=== PATIENT | female | born 1965 | race Caucasian/White ===

== ENCOUNTER 2017-12-29 16:57 | Emergency (ER) | payer MEDICAID ==
[~2017-12-29] VITALS: Ht 165.1 cm; Wt 67.4 kg
[2017-12-29] MEDS ORDERED: SODIUM CHLORIDE 0.9% 1,000 ML IV ONE (17:25)
[2017-12-29] MEDS ORDERED: SODIUM CHLORIDE 0.9% 1,000ML IVBOLUS ONE (17:30)
[2017-12-29] MEDS ORDERED: SODIUM CHLORIDE FLUSH 10ML SYR IVF ONE (17:30)
[2017-12-29 17:54] LABS: BASOPHILS # (AUTO) 0.03 x10^3/uL (0-0.1); BASOPHILS % (AUTO) 1 % (0-1); EOSINOPHILS # (AUTO) 0.08 x10^3/uL (0-0.4); EOSINOPHILS % (AUTO) 1 % (1-7); LYMPHOCYTES # (AUTO) 1.68 x10^3/uL (1-3.4); LYMPHOCYTES % (AUTO) 30 % (22-44); MD NO; MEAN CORPUSCULAR HEMOGLOBIN 31.6 pg (27.0-34.8); MEAN CORPUSCULAR HGB CONC 33.5 g/dL (32.4-35.8); MEAN CORPUSCULAR VOLUME 94.6 fL (80-100); MEAN PLATELET VOLUME 9.6 fL (7.4-10.4); MONOCYTES # (AUTO) 0.36 x10^3/uL (0.2-0.8); MONOCYTES % (AUTO) 6 % (2-9); NEUTROPHILS # (AUTO) 3.51 x10^3/uL (1.8-6.8); NEUTROPHILS % (AUTO) 62 % (42-75); PLATELET COUNT 204 x10^3/uL (130-400); RED BLOOD COUNT 3.99 x10^6/uL (3.82-5.3); RED CELL DISTRIBUTION WIDTH 13.9 % (9.6-15.2)
[2017-12-29 18:04] LABS: ACETONE, SERUM Negative (Negative)
[2017-12-29 18:07] LABS: ALANINE AMINOTRANSFERASE 32 U/L (12-78); ALBUMIN 3.7 g/dL (3.4-5.0); ANION GAP 7 mmol/L (5-15); CALCIUM 9.3 mg/dL (8.5-10.1); CHLORIDE 108 mmol/L (98-107); CREATININE 1.04 mg/dL (0.55-1.02)
[2017-12-29 18:12] LABS: ALKALINE PHOSPHATASE 159 U/L (45-117); BILIRUBIN,TOTAL 0.3 mg/dL (0.2-1.0)
[2017-12-29 18:12] LABS: MICROSCOPIC INDICATED
[2017-12-29 18:20] LABS: CULTURE INDICATED? NO
[2017-12-29 18:42] VITALS: BP 170/79
== END 2017-12-29 20:05 | disposition home or self-care (01) ==
LOC: ED 19:40
DX: R10.2 Pelvic and perineal pain (principal); E10.65 Type 1 diabetes mellitus with hyperglycemia; N93.8 Other specified abnormal uterine and vaginal bleeding; F17.200 Nicotine dependence, unspecified, uncomplicated; Z79.4 Long term (current) use of insulin
CPT/HCPCS: 36415; 76830; 80053; 81001; 82010; 82800; 82962; 83690; 84703; 85025; 99285

== ENCOUNTER 2020-05-30 22:52 | Emergency (ER) | payer MEDICAID ==
[~2020-05-30] VITALS: Ht 165.1 cm; Wt 65.4 kg
[2020-05-30] MEDS ORDERED: SODIUM CHLORIDE FLUSH 10ML SYR IVF ONE (23:30)
[2020-05-30] MEDS ORDERED: ASPIRIN 81 MG TABLET CHEW PO ONE (23:30)
--- NOTE | 2020-05-30 23:30 | NUR ---
Pt here for shoulder pain that moved to her left arm and then left neck. Pt reports no cardiac hx but is a type-1 diabetic. Pt reports she has smoked for many years though. pt reports she was concerned as she has never had pain like this and wanted to be evaluated. Pt connected to hr, spo2, bp , rr monitor. Call light in reach and given 162mg of asa. Awaitng further orders.
[2020-05-30] MEDS ORDERED: ASPIRIN 81 MG TABLET CHEW ONE (23:36)
[2020-05-30 23:42] VITALS: BP 150/94
[2020-05-30 23:45] LABS: BASOPHILS % (AUTO) 2 % (0-1); EOSINOPHILS % (AUTO) 4 % (1-7); LYMPHOCYTES % (AUTO) 35 % (22-44); MEAN CORPUSCULAR HEMOGLOBIN 32.1 pg (27.0-34.8); MEAN CORPUSCULAR HGB CONC 33.6 g/dL (32.4-35.8); MEAN PLATELET VOLUME 10.4 fL (7.4-10.4); MONOCYTES % (AUTO) 6 % (2-9); NEUTROPHILS % (AUTO) 54 % (42-75); PLATELET COUNT 240 x10^3/uL (130-400); RED CELL DISTRIBUTION WIDTH 13.6 % (9.6-15.2)
[2020-05-30 23:54] LABS: ALANINE AMINOTRANSFERASE 22 U/L (12-78); ALBUMIN 3.6 g/dL (3.4-5.0); ANION GAP 6 mmol/L (5-15); CALCIUM 8.4 mg/dL (8.5-10.1); CHLORIDE 103 mmol/L (98-107); CREATININE 1.25 mg/dL (0.55-1.02)
[2020-05-30 23:58] LABS: ALKALINE PHOSPHATASE 144 U/L (45-117); BILIRUBIN,TOTAL 0.3 mg/dL (0.2-1.0); TOTAL PROTEIN 6.5 g/dL (6.4-8.2); TROPONIN I < 0.015 ng/mL (0.000-0.045)
[2020-05-30 23:59] LABS: MD NO
--- NOTE | 2020-05-31 00:10 | NUR ---
report to Ryan Aviles RN
== END 2020-05-31 01:18 | disposition home or self-care (01) ==
LOC: ED 05-31 00:13
DX: M79.622 Pain in left upper arm (principal); E10.65 Type 1 diabetes mellitus with hyperglycemia; E16.2 Hypoglycemia, unspecified; R07.89 Other chest pain; F17.210 Nicotine dependence, cigarettes, uncomplicated
CPT/HCPCS: 36415; 71045; 80053; 84484; 85025; 93005; 99285

== ENCOUNTER 2020-06-27 17:40 | Emergency (ER) | payer MEDICAID ==
[~2020-06-27] VITALS: Ht 165.1 cm; Wt 64.8 kg
[2020-06-27 17:48] VITALS: BP 147/82
--- NOTE | 2020-06-27 18:45 | NUR ---
not in lobby
--- NOTE | 2020-06-27 19:00 | NUR ---
pt called to room from lobby - not in lobby
--- NOTE | 2020-06-27 19:18 | NUR ---
pt called to room from lobby -not in lobby
== END 2020-06-27 18:53 ==
LOC: ED 18:47
DX: M54.9 Dorsalgia, unspecified (principal); Z53.21 Procedure and treatment not carried out due to patient leaving prior to being seen by health care provider

== ENCOUNTER 2020-07-16 16:32 | Emergency (ER) | payer MEDICAID ==
[~2020-07-16] VITALS: Ht 165.1 cm; Wt 65.5 kg
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
[2020-07-16] MEDS ORDERED: METHOCARBAMOL 750 MG TABLET ONE (18:29)
[2020-07-16] MEDS ORDERED: KETOROLAC 60 MG/2 ML ONE (18:29)
[2020-07-16] MEDS ORDERED: HYDROmorphone 1 MG/ML, 1ML INJ ONE (18:29)
[2020-07-16] MEDS ORDERED: KETOROLAC 30 MG/1 ML IM ONE (18:30)
[2020-07-16] MEDS ORDERED: METHOCARBAMOL 750 MG TABLET PO ONE (18:30)
[2020-07-16] MEDS ORDERED: HYDROmorphone 2 MG/ML, 1ML IM ONE (18:30)
[2020-07-16 18:51] VITALS: BP 164/98
== END 2020-07-16 20:21 | disposition home or self-care (01) ==
LOC: ED 19:07
DX: M54.5 Low back pain (principal); E11.9 Type 2 diabetes mellitus without complications; F17.200 Nicotine dependence, unspecified, uncomplicated; Z90.49 Acquired absence of other specified parts of digestive tract
CPT/HCPCS: 72110; 96372; 99284; J1170; J1885

== ENCOUNTER 2020-12-17 21:11 | Emergency (ER) | payer MEDICAID ==
[~2020-12-17] VITALS: Ht 165.1 cm; Wt 71.0 kg
--- NOTE | 2020-12-17 21:20 | NUR ---
PATIENT ARRIVES WITH LEFT LOWER QUADRANT ABDOMINAL PAIN FOR TWO DAYS. SHE HAS SOME NAUSEA, NO VOMITING.
[2020-12-17] MEDS ORDERED: HYDR1TAB53 PO (21:30)
[2020-12-17] MEDS ORDERED: CYCL7.5T25 PO (21:31)
[2020-12-17] MEDS ORDERED: DIAZ5TAB PO (21:31)
[2020-12-17] MEDS ORDERED: ONDANSETRON 2MG/ML, 2ML ONE (21:52)
[2020-12-17] MEDS ORDERED: MORPHINE SULFATE 4 MG/ML, 1ML ONE (21:52)
[2020-12-17] MEDS ORDERED: MORPHINE SULFATE 4 MG/ML, 1ML IVPush PRN (22:00)
[2020-12-17] MEDS ORDERED: SODIUM CHLORIDE 0.9% 1,000ML IVBOLUS ONE (22:00)
[2020-12-17] MEDS ORDERED: OMNIPAQUE 350 MG/ML, 100ML BOTTLE ONE (22:00)
[2020-12-17] MEDS ORDERED: ONDANSETRON 2MG/ML, 2ML IVPush ONE (22:00)
[2020-12-17 22:18] LABS: BASOPHILS % (AUTO) 1 % (0-1); EOSINOPHILS % (AUTO) 4 % (1-7); LYMPHOCYTES % (AUTO) 29 % (22-44); MEAN CORPUSCULAR HEMOGLOBIN 32.6 pg (27.0-34.8); MEAN CORPUSCULAR HGB CONC 34.8 g/dL (32.4-35.8); MEAN PLATELET VOLUME 9.6 fL (7.4-10.4); MONOCYTES % (AUTO) 9 % (2-9); NEUTROPHILS % (AUTO) 56 % (42-75); PLATELET COUNT 169 x10^3/uL (130-400); RED BLOOD COUNT 3.37 x10^6/uL (3.82-5.3); RED CELL DISTRIBUTION WIDTH 14.1 % (9.6-15.2)
[2020-12-17 22:19] LABS: MD NO
[2020-12-17 22:20] LABS: ALANINE AMINOTRANSFERASE 40 U/L (12-78); ALBUMIN 3.3 g/dL (3.4-5.0); ANION GAP 3 mmol/L (5-15); CALCIUM 8.6 mg/dL (8.5-10.1); CHLORIDE 102 mmol/L (98-107); CREATININE 1.05 mg/dL (0.55-1.02)
[2020-12-17 22:22] LABS: ALKALINE PHOSPHATASE 169 U/L (45-117); BILIRUBIN,TOTAL 0.3 mg/dL (0.2-1.0); TOTAL PROTEIN 6.3 g/dL (6.4-8.2)
--- NOTE | 2020-12-17 22:47 | NUR ---
patient up to bathroom, no complications. then she left with tech to ct scan.
--- NOTE | 2020-12-17 23:43 | NUR ---
PATIENT PULLED IV OUT WHILE RESTING IN BED. WILL REPLACE. WALKED HER TO BATHROOM, URINE SAMPLE OBTAINED.
[2020-12-17 23:44] VITALS: BP 119/78
--- NOTE | 2020-12-17 23:50 | NUR ---
sent urine to lab. patient in bed rails up
[2020-12-18 00:03] LABS: MICROSCOPIC AUTO
--- NOTE | 2020-12-18 01:01 | NUR ---
PATIENT FIGETY AND GETS UP TO GO PEE, LOOK FOR GLASSES, GIVE HERSELF INSULIN; SHE JUST INFORMED ME THAT SHE GAVE HERSELF INSULIN HER NIGHTLY DOSE AND NOW FEELS HYPOGLYCEMIC. WILL GET HER A SANDWICH AND LET MD KNOW. PATIENT RESTLESS.
--- NOTE | 2020-12-18 01:10 | NUR ---
patient has daughter picking her up. ate her sandwich and juice, and states feels improved.
== END 2020-12-18 01:15 | disposition home or self-care (01) ==
LOC: ED 23:58
DX: R10.32 Left lower quadrant pain (principal); E11.65 Type 2 diabetes mellitus with hyperglycemia; R11.0 Nausea; Z90.49 Acquired absence of other specified parts of digestive tract; Z87.891 Personal history of nicotine dependence
CPT/HCPCS: 36415; 74177; 80053; 81001; 83690; 85025; 87086; 96361; 96374; 96375; 99285; J2270; J2405; J7030; Q9967